=== PATIENT | male | born 1985 | race Asian ===

== ENCOUNTER → 2018-05-28 | Outpatient (CLI) | payer MEDICAID | LOC: FIMAGING 09:01 | PROVIDERS: ATTEND Psychiatry & Neurology Neurology | DX: R51 Headache (principal); J34.89 Other specified disorders of nose and nasal sinuses ==

== ENCOUNTER → 2018-10-19 | Outpatient (CLI) | payer MEDICAID | LOC: FIMAGING 10:30 ==